=== PATIENT | male | born 1940 | race Caucasian/White ===

== ENCOUNTER 2024-09-01 11:26 | Inpatient (IN) | payer MEDICARE, BC ==
[2024-09-01] MEDS ORDERED: MG-AL HYDROXIDE/SIMETICONE 30 ML UDC PO PRN (16:40)
[2024-09-01] MEDS ORDERED: ACETAMINOPHEN 325 MG TAB PO PRN (16:40)
[2024-09-01] MEDS ORDERED: Magnesium Hydroxide 30 ML UDC PO PRN (16:40)
[2024-09-01] MEDS ORDERED: Menthol/Zinc Oxide 4 GM THIN T PRN (16:45)
[2024-09-01] MEDS ORDERED: LORazepam 2 MG/ML VIAL IM PRN (17:00)
[2024-09-01] MEDS ORDERED: LORazepam 1 MG TAB PO PRN (17:00)
[2024-09-01] MEDS ORDERED: Ziprasidone Mesylate 20 MG VIAL IM PRN (17:00)
[2024-09-01] MEDS ORDERED: Water, Sterile 10 ML VIAL IM PRN (17:05)
[2024-09-01] MEDS ORDERED: LATANOPROST2.5 ML OD (18:40)
[2024-09-01 20:00] VITALS: BP 190/90
[2024-09-01] MEDS ORDERED: LATANOPROST 0.005% 2.5 ML BOTTLE OPH SCH (21:00)
[2024-09-01] MEDS ORDERED: hydrALAZINE hydrochloride 10 MG TAB PO ONE (22:05)
[2024-09-02 00:50] VITALS: BP 190/91
[2024-09-02] MEDS ORDERED: cloNIDine Hydrochloride 0.1 MG TAB PO ONE ×2 (00:55→02:55)
[2024-09-02 02:50] VITALS: BP 171/83
[2024-09-02 04:21] VITALS: BP 170/70
[2024-09-02 06:43] LABS: BASO # 0.1 10*3/uL (0.0-0.1); BASO % 1.2 % (0.0-1.0); EOS # 0.3 10*3/uL (0.0-0.4); EOS % 5.6 % (1.0-4.0); HEMATOCRIT 40.1 % (42.0-52.0); LYMPH # 1.6 10*3/uL (1.3-4.4); LYMPH % 26.8 % (27.0-41.0); MEAN CELL VOLUME 98.8 fl (80.0-94.0); MEAN CORPUSCULAR HGB 32.3 pg (27.0-31.0); MEAN CORPUSCULAR HGB CONC 32.7 g/dl (33.0-37.0); MEAN PLATELET VOLUME 10.5 fl (9.6-12.3); MONO # 0.5 10*3/uL (0.1-1.0); NEUT # 3.4 10*3/uL (2.3-7.9); NEUT % 57.2 % (47.0-73.0); PLATELET COUNT AUTOMATED 258 10*3/uL (130-400); RED BLOOD COUNT 4.06 10*6/uL (4.50-5.90); RED CELL DISTRI WIDTH 13.6 % (0-14.5); WHITE BLOOD COUNT 5.9 10*3/uL (4.8-10.8)
[2024-09-02 07:04] LABS: ALKALINE PHOSPHATASE 80 U/L (46-116); BUN 13 mg/dl (9-23); CHLORIDE 104 mmol/L (98-107); CHOLESTEROL 164 mg/dL (<200); LDL CHOLESTEROL 98 mg/dL (9-159); POTASSIUM 3.9 mmol/L (3.4-5.1); TOTAL PROTEIN 6.2 gm/dL (6.0-8.0); TRIGLYCERIDES 47 mg/dl (<150)
[2024-09-02 07:16] LABS: SGPT/ALT < 7 U/L (5-49)
[2024-09-02 08:17] LABS: VITAMIN D, 25-HYDROXY 34.3 ng/mL (30-100)
[2024-09-02] MEDS ORDERED: amLODIPine besylate 5 MG TAB PO SCH (09:20)
[2024-09-02] MEDS ORDERED: Rivastigmine Tartrate 4.6 MG/24 HR PATCH T SCH (09:45)
[2024-09-02 10:12] LABS: BASO # 0.1 10*3/uL (0.0-0.1); BASO % 1.5 % (0.0-1.0); EOS # 0.3 10*3/uL (0.0-0.4); EOS % 4.9 % (1.0-4.0); HEMATOCRIT 41.5 % (42.0-52.0); LYMPH # 1.1 10*3/uL (1.3-4.4); LYMPH % 21.4 % (27.0-41.0); MEAN CELL VOLUME 98.6 fl (80.0-94.0); MEAN CORPUSCULAR HGB 32.5 pg (27.0-31.0); MEAN PLATELET VOLUME 10.3 fl (9.6-12.3); MONO # 0.4 10*3/uL (0.1-1.0); MONO % 8.3 % (3.0-9.0); NEUT # 3.4 10*3/uL (2.3-7.9); NEUT % 63.7 % (47.0-73.0); PLATELET COUNT AUTOMATED 279 10*3/uL (130-400); RED BLOOD COUNT 4.21 10*6/uL (4.50-5.90); RED CELL DISTRI WIDTH 13.5 % (0-14.5); WHITE BLOOD COUNT 5.3 10*3/uL (4.8-10.8)
[2024-09-02 10:34] LABS: ALKALINE PHOSPHATASE 84 U/L (46-116); BUN 12 mg/dl (9-23); CHLORIDE 105 mmol/L (98-107); SGPT/ALT 7 U/L (5-49); TOTAL PROTEIN 6.5 gm/dL (6.0-8.0)
[2024-09-02 17:03] VITALS: BP 158/85
[2024-09-02 20:11] VITALS: BP 179/84
[2024-09-02] MEDS ORDERED: Memantine Hydrochloride 5 MG TAB PO SCH (21:00)
[2024-09-02 23:48] LABS: BILIRUBIN Negative (Negative); BLOOD Negative (Negative); CLARITY Clear (Clear); COLOR Yellow (Yellow); GLUCOSE Negative (Negative); KETONE Negative (Negative); LEUKO ESTERASE Negative (Negative); NITRITE Negative (Negative)
[2024-09-03 00:11] LABS: WBC 0-2 wbc/hpf (0-5)
[2024-09-03 20:00] VITALS: BP 129/76
[2024-09-03] MEDS ORDERED: Memantine Hydrochloride 5 MG TAB PO SCH (21:00)
[2024-09-04 08:00] VITALS: BP 149/78
[2024-09-04] MEDS ORDERED: Rivastigmine Tartrate 9.5 MG/24 HR PATCH T SCH (09:00)
[2024-09-04] MEDS ORDERED: Memantine Hydrochloride 5 MG TAB PO SCH (09:00)
[2024-09-04 14:00] VITALS: BP 149/78
[2024-09-04 20:00] VITALS: BP 140/70
[2024-09-04] MEDS ORDERED: Memantine Hydrochloride 10 MG TAB PO SCH (21:00)
[2024-09-05 08:00] VITALS: BP 141/75
[2024-09-05 14:00] VITALS: BP 141/75
[2024-09-05 20:00] VITALS: BP 140/84
[2024-09-05] MEDS ORDERED: Mirtazapine 15 MG TAB PO SCH (21:00)
[2024-09-06 08:00] VITALS: BP 132/76
[2024-09-06] MEDS ORDERED: RIVASTIGMINE 13.3 MG/24 HR TDM T SCH (09:00)
[2024-09-06] MEDS ORDERED: Memantine Hydrochloride 10 MG TAB PO SCH (09:00)
[2024-09-06 14:00] VITALS: BP 132/76
[2024-09-06 20:00] VITALS: BP 150/88
[2024-09-07 09:19] VITALS: BP 117/86
[2024-09-07 14:00] VITALS: BP 117/86
[2024-09-07 20:00] VITALS: BP 148/64
[2024-09-08 10:15] LABS: BASO # 0.1 10*3/uL (0.0-0.1); EOS # 0.3 10*3/uL (0.0-0.4); EOS % 4.1 % (1.0-4.0); HEMATOCRIT 43.6 % (42.0-52.0); LYMPH # 1.5 10*3/uL (1.3-4.4); LYMPH % 19.1 % (27.0-41.0); MEAN CELL VOLUME 97.1 fl (80.0-94.0); MEAN CORPUSCULAR HGB 33.2 pg (27.0-31.0); MEAN CORPUSCULAR HGB CONC 34.2 g/dl (33.0-37.0); MEAN PLATELET VOLUME 10.5 fl (9.6-12.3); MONO # 0.4 10*3/uL (0.1-1.0); MONO % 4.9 % (3.0-9.0); NEUT # 5.5 10*3/uL (2.3-7.9); NEUT % 70.5 % (47.0-73.0); PLATELET COUNT AUTOMATED 273 10*3/uL (130-400); RED BLOOD COUNT 4.49 10*6/uL (4.50-5.90); RED CELL DISTRI WIDTH 13.5 % (0-14.5); WHITE BLOOD COUNT 7.8 10*3/uL (4.8-10.8)
[2024-09-08 10:36] LABS: ALKALINE PHOSPHATASE 92 U/L (46-116); BUN 27 mg/dl (9-23); CHLORIDE 103 mmol/L (98-107); POTASSIUM 3.6 mmol/L (3.4-5.1); SGPT/ALT 8 U/L (5-49); TOTAL PROTEIN 6.7 gm/dL (6.0-8.0)
[2024-09-08 14:00] VITALS: BP 148/64
[2024-09-08 20:00] VITALS: BP 125/64
[2024-09-09 11:26] VITALS: BP 130/76
[2024-09-09 20:00] VITALS: BP 169/71
[2024-09-09] MEDS ORDERED: AMMONIUM LACTATE 12% LOTION T SCH (21:00)
[2024-09-09] MEDS ORDERED: MICONAZOLE NITRATE 2% 75 GM BOT T SCH (21:00)
[2024-09-10 08:22] VITALS: BP 126/82
[2024-09-10 14:06] VITALS: BP 126/82
[2024-09-10 20:00] VITALS: BP 148/83
[2024-09-11 08:00] VITALS: BP 162/85
[2024-09-11 20:00] VITALS: BP 139/70
[2024-09-12 08:00] VITALS: BP 117/71
[2024-09-12 14:00] VITALS: BP 170/90
[2024-09-12 20:00] VITALS: BP 128/72
[2024-09-13] MEDS ORDERED: MEMANTINE HCL10 MG PO (07:43)
[2024-09-13] MEDS ORDERED: RIVASTIGMINE1 EAC2 T (07:43)
[2024-09-13] MEDS ORDERED: MIRTAZAPINE15 M2 PO (07:43)
[2024-09-13 09:30] VITALS: BP 123/75
[2024-09-13] MEDS ORDERED: AMLODIPINE BESYL5 MG PO (11:35)
== END 2024-09-13 15:24 | disposition home or self-care (01) | DRG 883 ==
LOC: 3N 11:26
PROVIDERS: Counselor Professional; Student in an Organized Health Care Education/Training Program; ADMIT Psychiatry & Neurology Psychiatry; ATTEND Psychiatry & Neurology Psychiatry
PROC: GZHZZZZ Group Psychotherapy (ICD-10-PCS; principal; 2024-09-02)
PROC: GZ51ZZZ Individual Psychotherapy, Behavioral (ICD-10-PCS; 2024-09-02)
PROC: GZ56ZZZ Individual Psychotherapy, Supportive (ICD-10-PCS; 2024-09-02)
DX: F63.81 Intermittent explosive disorder (principal); F02.811 Dementia in other diseases classified elsewhere, unspecified severity, with agitation; F02.83 Dementia in other diseases classified elsewhere, unspecified severity, with mood disturbance; G30.9 Alzheimer's disease, unspecified; I10 Essential (primary) hypertension; Z20.822 Contact with and (suspected) exposure to COVID-19; D64.9 Anemia, unspecified; Z66 Do not resuscitate; Z79.899 Other long term (current) drug therapy; Z87.891 Personal history of nicotine dependence